=== PATIENT | female | born 1945 | race Caucasian/White ===

== ENCOUNTER → 2017-09-08 | Outpatient (CLI) | payer MEDICARE ==
[~2017-09-08] MED LIST: AMLODIPINE BESY10 MG PO; ASPIR 8181 MG PO; CARBAMAZEPINE200 MG PO; CYMBALTA60 MG PO; GABAPENTIN100 MG PO; METOPROLOL SUC100 MG PO; MOEXIPRIL HCL15 MG PO; MULTI-VITAMIN1 EACH PO; OMEPRAZOLE PO; SIMVASTATIN40 MG PO; SYMBICORT 16010.2 GM INH; SYNTHROID125 MCG PO
--- NOTE | 2017-09-08 10:58 | Diagnostic Imaging Report ---
PROCEDURE: CT CHEST WITHOUT CONTRAST CT scan of the chest WITHOUT intravenous contrast, using standard protocol. TECHNIQUE: The chest was scanned utilizing a multidetector helical scanner from the apex to the level of the adrenal glands. No IV contrast was administered because of referring physician request. Coronal and sagittal multiplanar reformations were obtained. COMPARISON: None. INDICATIONS: Weight loss FINDINGS: Lines/tubes: None. Lungs and Airways: The lungs are hyperinflated with moderate upper lobe predominant centrilobular emphysematous changes. Biapical pleural-parenchymal scar is superimposed. Multiple very small (1-2 mm) nodules are identified within the right middle lower lobe, some of which have a tree in bud configuration. 6 mm triangular juxtapleural opacity along the superior segment of the right lower lobe seen on series 3 image 44. 2 mm juxtapleural nodule left upper lobe seen on series 3 image 43. A 3 mm nodule superior segment left lower lobe also series 3 image 43. 3 mm groundglass nodule lingula series 3 image 61. Mild central bronchiectasis without endobronchial filling defects. Small amount of mucus within the trachea. Pleura: No pleural effusion or pneumothorax. Heart and mediastinum: Atherosclerotic calcification of the thoracic aorta and great vessel origins. Mild ectasia of the ascending thoracic aorta (4 cm) . Coronary artery calcifications. Enlargement of the pulmonary outflow tract, which measures 3.6 cm in diameter. Multiple calcified mediastinal lymph nodes. Mild cardiomegaly without pericardial effusion. Soft tissues: No focal soft tissue abnormalities. Abdomen: Visualized portions of the liver, spleen and pancreas are unremarkable. Bilateral fullness of the adrenal glands without discrete nodule. Extensive calcific atherosclerotic disease of the upper abdominal aorta. Bones: No osseous destructive lesions. Osteopenia with multilevel degenerative disc disease of the lower cervical and thoracic spine. IMPRESSION: Moderate upper lobe predominant emphysematous changes and biapical pleural-parenchymal scar. Scattered solid and ground glass pulmonary nodules measuring up to 6 mm. Atherosclerotic vascular disease with mild ectasia of the ascending thoracic aorta. CT angiography of the chest is suggested in one year to assess for stability. Above-described pulmonary nodules may also be reassessed at that time. Cardiomegaly with enlargement of the pulmonary outflow tract compatible with pulmonary hypertension. Evidence of prior granulomatous disease. Dictated by: Carlos Bird M.D. on 09/08/2017 at 10:57 Electronically approved by: Carlos Bird M.D. on 09/08/2017 at 10:57
== END ==
LOC: CT 09:49
PROVIDERS: ATTEND Internal Medicine
DX: R63.4 Abnormal weight loss (principal)
CPT/HCPCS: 71250

== ENCOUNTER → 2018-05-23 | Outpatient (CLI) | payer MEDICARE ==
--- NOTE | 2018-05-23 10:01 | Diagnostic Imaging Report ---
PROCEDURE: CT CHEST WITHOUT CONTRAST CT scan of the chest WITHOUT intravenous contrast, using standard protocol. TECHNIQUE: The chest was scanned utilizing a multidetector helical scanner from the apex to the level of the adrenal glands. No IV contrast was administered per protocol. Coronal and sagittal multiplanar reformations were obtained. COMPARISON: CT Chest 09/08/2017. INDICATIONS: Nodule FINDINGS: Lines/tubes: None. Lungs and Airways: The lungs are hyperinflated with moderate upper lobe predominant centrilobular emphysematous changes and biapical pleural parenchymal opacity. Bilateral solid pulmonary nodules are unchanged. Again noted is a 7 mm right lower lobe subpleural nodular opacity on series 3, image 46. Multiple other 2-3 mm bilateral solid nodules are unchanged. A triangular opacity in the lingula may represent atelectasis, and previously had a ground glass appearance. Mild central bronchiectasis. Central airways are patent. Pleura: No pleural effusion or pneumothorax. Heart and mediastinum: Atherosclerotic calcification of the thoracic aorta and great vessel origins. Mild ectasia of the ascending thoracic aorta measuring 4 cm, as before. Coronary atherosclerosis. Enlargement of the pulmonary outflow tract, which measures 3.7 cm in diameter. Multiple calcified mediastinal lymph nodes. Mild cardiomegaly without pericardial effusion. Soft tissues: No focal soft tissue abnormalities. Abdomen: Visualized portions of the liver, spleen and pancreas are unremarkable. Status post cholecystectomy. Bilateral fullness of the adrenal glands without definite nodule. Extensive calcific atherosclerotic disease of the upper abdominal aorta. Bones: No osseous destructive lesions. Mild degenerative changes of the visualized spine. IMPRESSION: Moderate emphysematous changes of the lungs with stability of scattered solid pulmonary nodules measuring up to 7 mm. Continued follow-up CT in 12 months is suggested. Atherosclerotic vascular disease with mild ectasis of the ascending thoracic aorta. CT Angiography of the chest is suggested in 12 months to assess for stability, lung nodule stability can also be assessed at that time. Cardiomegaly with enlarged pulmonary outflow tract, compatible with pulmonary arterial hypertension. Findings of prior granulomatous disease. Dictated by: BRANDON VALDERRAMA M.D. on 05/23/2018 at 10:10 Electronically approved by: BRANDON VALDERRAMA M.D. on 05/23/2018 at 10:10
== END ==
LOC: CT 08:30
PROVIDERS: ATTEND Internal Medicine
DX: R91.8 Other nonspecific abnormal finding of lung field (principal)
CPT/HCPCS: 71250

== ENCOUNTER → 2018-09-07 | Outpatient (CLI) | payer MEDICARE ==
--- NOTE | 2018-09-07 10:17 | Diagnostic Imaging Report ---
EXAM: CT Chest WITHOUT contrast 09/07/2018 8:19 AM INDICATION: Pulmonary nodules COMPARISON: Chest CT, 05/23/2018, 09/08/2017 TECHNIQUE: Chest was scanned utilizing a multidetector helical scanner from the lung apex through the level of the adrenal glands without administration of IV contrast. Absence of intravenous contrast decreases sensitivity for detection of lymphadenopathy and vascular pathology. Coronal and sagittal reformations were obtained. Routine protocol was performed. Dose modulation, iterative reconstruction, and/or weight based adjustment of the mA/kV was utilized to reduce the radiation dose to as low as reasonably achievable. IV CONTRAST: None RADIATION DOSE: Total DLP: 131.20 mGy*cm Estimated effective dose: (DLP x 0.014 x size factor) mSv COMPLICATIONS: None FINDINGS: LINES/ TUBES: None. LUNGS AND AIRWAYS: Again noted is moderate centrilobular emphysematous change with upper lobe predominance. Pleural parenchymal scarring in the apices with a calcified granuloma in the right apex appears unchanged. There is bilateral perihilar bronchial wall thickening and central bronchiectasis. Stable 7 mm pleural-based nodule in the medial right lower lobe (series 3, image 45) again noted. No other dominant nodules or opacities. Scattered 2 to 3 mm nodules are stable. Mild atelectasis in the lingula is unchanged. Trachea and main bronchi are clear. PLEURA: No pleural effusion, pneumothorax or pleural calcification. Mild pleural thickening in the lateral aspects of the upper chest is stable from previous exam. HEART AND MEDIASTINUM: No mediastinal, hilar or axillary lymphadenopathy. Multiple calcified mediastinal nodes are again noted. Small noncalcified nodes are stable and likely reactive. Stable mild cardiomegaly.. There is no pericardial effusion. Stable ectatic ascending aorta measuring 4.0 cm. Stable dilatation of the main pulmonary artery measuring 3.7 cm extensive coronary artery calcification again noted. UPPER ABDOMEN: Included portions of the liver, spleen, pancreas, adrenals and kidneys show no focal abnormality. Coarse intraluminal calcification in the upper abdominal aorta is again noted. Partial visualization of cholecystectomy clips again seen. BONES: No acute or suspicious bony lesions. Degenerative changes are again noted in the spine. SOFT TISSUES: Superficial surrounding soft tissue unremarkable. IMPRESSION: 1. Stable pulmonary nodules measuring up to 7 mm. 2. Stable moderate centrilobular emphysema. 3. Stable ectasia of ascending thoracic aorta measuring 4.0 cm. Aortic atherosclerosis in the upper abdomen and coronary arteries again noted. Continued follow-up may be warranted. 4. Stable dilatation of the main pulmonary artery measuring 3.7 cm. This may be seen with pulmonary hypertension. Signed by: Dr. Felipe hPillips M.D. on 09/07/2018 10:14 AM
== END ==
LOC: CT 08:03
PROVIDERS: ATTEND Internal Medicine
DX: R91.8 Other nonspecific abnormal finding of lung field (principal)
CPT/HCPCS: 71250

== ENCOUNTER → 2019-02-23 | Outpatient (CLI) | payer MEDICARE ==
--- NOTE | 2019-02-23 12:08 | Diagnostic Imaging Report ---
EXAM: CT Chest WITHOUT intravenous contrast 02/23/2019 11:01 AM INDICATION: Shortness of breath COMPARISON: Chest CT of 09/07/2018 TECHNIQUE: Chest was scanned utilizing a multidetector helical scanner from the lung apex through the level of the adrenal glands without administration of IV contrast. Coronal and sagittal reformations were obtained. Routine protocol was performed. IV CONTRAST: None RADIATION DOSE: Total DLP: 229.3 mGy*cm. Dose modulation, iterative reconstruction, and/or weight based adjustment of the mA/kV was utilized to reduce the radiation dose to as low as reasonably achievable. COMPLICATIONS: None FINDINGS: LINES/ TUBES: None. LUNGS AND AIRWAYS: There is a small amount of mucus in the distal trachea. The remaining central airways are patent. Unchanged mild bronchial wall thickening. Biapical pleural parenchymal thickening/scarring with a focal right apical calcified granuloma. Bilateral upper lobe predominant centrilobular emphysema. No focal consolidation. No pulmonary edema. Unchanged 7 mm posterior right lower lobe pleural-based nodule. No new suspicious pulmonary nodules. PLEURA: No pleural effusion or pneumothorax. HEART AND MEDIASTINUM: The thyroid gland appears unremarkable. No supraclavicular lymphadenopathy. Unchanged calcified mediastinal and right hilar lymph nodes not meeting size criteria for lymphadenopathy. No axillary, subpectoral, or internal mammary lymphadenopathy. Mild cardiomegaly. Atherosclerotic calcifications of the coronary arteries and thoracic aorta and great vessels. No pericardial effusion. Unchanged prominent main pulmonary artery measuring up to 3.7 cm. UPPER ABDOMEN: Limited noncontrast enhanced views of the upper abdomen demonstrate no focal abnormality of the partially visualized liver, spleen, pancreas, or left kidney. The right kidney is not visualized. Thickening of both adrenal glands with no focal nodule. Focal chunky atherosclerotic calcification at the celiac artery origin and to a lesser extent the superior mesenteric artery origin measures up to 13 mm and protrudes into the aortic lumen. BONES: There are degenerative changes in the thoracic spine. No suspicious lytic or blastic lesions. No acute osseous injury. SOFT TISSUES: Unremarkable. IMPRESSION: Unchanged bilateral upper lobe predominant emphysema and mild bronchial wall thickening. Stable posterior right lower lobe 7 mm pulmonary nodule. Unchanged ascending thoracic aorta ectasia. Atherosclerotic calcifications of the aorta, great vessels, and coronary arteries. Focal dense chunky calcification at the celiac and SMA origins. Stable dilation of the main pulmonary artery up to 3.7 cm, which can be seen with pulmonary artery hypertension. . Signed by: Mian Silva MD on 02/23/2019 12:04 PM
== END ==
LOC: CT 10:39
PROVIDERS: ATTEND Internal Medicine
DX: R91.8 Other nonspecific abnormal finding of lung field (principal)
CPT/HCPCS: 71250

== ENCOUNTER → 2019-08-23 | Outpatient (CLI) | payer MEDICARE ==
--- NOTE | 2019-08-23 12:44 | Diagnostic Imaging Report ---
EXAM: CT Chest WITHOUT contrast INDICATION: ^[id number] ^1200 ^ABNORMAL FINDINGS OF LUNG FIELD COMPARISON: CT chest 02/23/2019 TECHNIQUE: Chest was scanned utilizing a multidetector helical scanner from the lung apex through the level of the adrenal glands without administration of IV contrast. Absence of intravenous contrast decreases sensitivity for detection of lymphadenopathy and vascular pathology. Coronal and sagittal reformations were obtained. Routine protocol was performed. IV CONTRAST: None COMPLICATIONS: None RADIATION DOSE: Total DLP: 135 mGy*cm Estimated effective dose: (DLP x 0.014 x size factor) mSv CTDIvol has been reviewed. It is below the limits set by the Radiation Protocol Committee (RPC). Dose modulation, iterative reconstruction, and/or weight based adjustment of the mA/kV was utilized to reduce the radiation dose to as low as reasonably achievable. FINDINGS: LINES/ TUBES: None. LUNGS AND AIRWAYS: Pulmonary emphysematous changes and mild bronchial wall thickening are stable. Unchanged biapical pleural and parenchymal scarring. Unchanged 7 mm subpleural nodule of the medial right lower lobe (image 46). A few additional micronodules within the lungs are also unchanged. No new or concerning pulmonary mass, nodule, or consolidation. PLEURA: The pleural spaces are clear. HEART AND MEDIASTINUM: The heart is at the upper limit of normal. No pericardial effusion. No thoracic adenopathy. Calcified mediastinal and hilar lymph nodes are unchanged. Stable ectasia of the ascending thoracic aorta. Advanced vascular calcifications including the coronary arteries. The pulmonary artery is unchanged in size. UPPER ABDOMEN: Unchanged. BONES: No acute osseous abnormality. SOFT TISSUES: Unremarkable. IMPRESSION: No interval changes when compared to the previous chest CT from 02/23/2019. Chronic lung changes are stable. No acute thoracic abnormality. Signed by: Danilo Wagoner MD on 08/23/2019 12:41 PM
== END ==
LOC: CT 11:26
PROVIDERS: ATTEND Internal Medicine
DX: R91.8 Other nonspecific abnormal finding of lung field (principal)
CPT/HCPCS: 71250